=== PATIENT | male | born 1990 | race Caucasian/White ===

== ENCOUNTER 2017-12-05 20:20 | Emergency (ER) | payer OTHER ==
[~2017-12-05] VITALS: Ht 190.5 cm; Wt 172.4 kg
[~2017-12-05 20:20] MED LIST: CEPH500C PO; CIPR500T94 PO
[2017-12-05] MEDS ORDERED: PANTOPRAZOLE IV PUSH 40 MG VIAL. IVP ONE (21:45)
[2017-12-05] MEDS ORDERED: ONDANSETRON PF 4 MG/2 ML VIAL. IV ONE (21:45)
[2017-12-05] MEDS ORDERED: IV NORMAL SALINE 1000ML BAG 1,000 ML IV ONE (21:45)
[2017-12-05 22:05] LABS: BASO # 0.1 x10^3/uL (0.0-0.2); BASO % 1 % (0-3); EOS # 0.2 x10^3/uL (0.0-0.7); EOS % 2 % (0-3); HEMATOCRIT 46.9 % (39.0-53.0); HEMOGLOBIN 16.6 g/dL (13.0-17.5); LYMPH # 2.4 x10^3/uL (1.0-4.8); LYMPH % 28 % (24-48); MEAN CORPUSCULAR HEMOGLOBIN 31 pg (25-35); MEAN CORPUSCULAR HGB CONC 36 g/dL (31-37); MEAN CORPUSCULAR VOLUME 88 fL (79-100); MONO # 0.6 x10^3/uL (0.0-1.1); MONO % 8 % (0-9); NEUT # 5.2 x10^3uL (1.8-7.7); NEUT % 62 % (31-73); PLATELET COUNT 332 x10^3/uL (140-400); RED BLOOD COUNT 5.31 x10^6/uL (4.30-5.70); WHITE BLOOD COUNT 8.5 x10^3/uL (4.0-11.0)
[2017-12-05 22:08] LABS: FECAL OB PT POSITIVE (NEG)
[2017-12-05 22:16] LABS: CALCIUM 10.1 mg/dL (8.5-10.1); CREATININE 1.2 mg/dL (0.7-1.3); GFR 73.2; POTASSIUM 3.8 mmol/L (3.5-5.1)
[2017-12-05 22:22] LABS: ALBUMIN 4.6 g/dL (3.4-5.0); MAGNESIUM 2.2 mg/dL (1.8-2.4)
--- NOTE | 2017-12-05 22:23 | PHYS DOC ---
Past Medical History Past Medical History: Hypertension Additional Past Medical Histor: OBESITY Past Surgical History: No Surgical History Alcohol Use: Occasionally Drug Use: Marijuana Social History Narrative: PT STATES THE LAST TIME HE SMOKED MARIJUANA WAS 3 WEEKS AGO Adult General Chief Complaint Chief Complaint: RECTAL BLEED HPI HPI Patient is a 27 year old male with history of hypertension who presents today complaining of bright red bloody stools since Sunday. Patient states he has toilet full of blood whenever he has to use the bathroom. He states this began as loose stools and no has turn into blood when he uses the bathroom. Patient denies any abdominal pain. He is also complaining of rectal pain when he uses the bathroom. Denies any nausea, vomiting. He is complaining of dizziness intermittently since Sunday. Nothing exacerbates or making his dizziness better. Denies any chest pain. Denies any shortness of breath Review of Systems Review of Systems Constitutional: Denies fever or chills [] Eyes: Denies change in visual acuity, redness, or eye pain [] HENT: Denies nasal congestion or sore throat [] Respiratory: Denies cough or shortness of breath [] Cardiovascular: No additional information not addressed in HPI [] GI: Reports bloody stools. Denies abdominal pain, nausea, vomiting : Denies dysuria or hematuria [] Musculoskeletal: Denies back pain or joint pain [] Integument: Denies rash or skin lesions [] Neurologic: Reports dizziness. Denies headache, focal weakness or sensory changes [] All other systems were reviewed and found to be within normal limits, except as documented in this note. Current Medications Current Medications Current Medications Medications (Trade) Dose Ordered Sig/Jarred Start Time Stop Time Status Last Admin Dose Admin Info (CONTRAST GIVEN -- Rx MONITORING) 1 each PRN DAILY PRN 12/05/17 22:30 12/07/17 22:29 Iohexol (Omnipaque 300 Mg/ml) 75 ml 1X ONCE 12/05/17 22:30 12/05/17 22:31 DC 12/05/17 22:29 75 ML Ondansetron HCl (Zofran) 4 mg 1X ONCE 12/05/17 21:45 12/05/17 21:54 DC 12/05/17 22:39 4 MG Pantoprazole Sodium (PROTONIX VIAL for IV PUSH) 40 mg 1X ONCE 12/05/17 21:45 12/05/17 21:54 DC 12/05/17 22:39 40 MG Sodium Chloride 1,000 ml @ 1,000 mls/hr 1X ONCE 12/05/17 21:45 12/05/17 22:44 DC 12/05/17 22:40 1,000 MLS/HR Allergies Allergies Allergies Coded Allergies Type Severity Reaction Last Updated Verified No Known Drug Allergies 11/05/15 No Physical Exam Physical Exam Constitutional: Well developed, well nourished, no acute distress, non-toxic appearance. [] HENT: Normocephalic, atraumatic, bilateral external ears normal, oropharynx moist, no oral exudates, nose normal. [] Eyes: PERRLA, EOMI, conjunctiva normal, no discharge. [] Neck: Normal range of motion, no tenderness, supple, no stridor. [] Cardiovascular:Heart rate regular rhythm, no murmur [] Lungs & Thorax: Bilateral breath sounds clear to auscultation [] Abdomen: Bowel sounds normal, soft, no tenderness, no masses, no pulsatile masses. [] Skin: Warm, dry, no erythema, no rash. [] Back: No tenderness, no CVA tenderness. [] Extremities: No tenderness, no cyanosis, no clubbing, ROM intact, no edema. [] Neurologic: Alert and oriented X 3, normal motor function, normal sensory function, no focal deficits noted. [] Psychologic: Affect normal, judgement normal, mood normal. [] Current Patient Data Vital Signs Vital Signs Date Time Temp Pulse Resp B/P (MAP) Pulse Ox O2 Delivery O2 Flow Rate FiO2 12/05/17 21:35 98.3 105 20 143/87 (105) 98 Room Air 98.3 Lab Values Laboratory Tests Test 12/05/17 21:20 12/05/17 21:50 Stool Occult Blood Positive (NEG) White Blood Count 8.5 x10^3/uL (4.0-11.0) Red Blood Count 5.31 x10^6/uL (4.30-5.70) Hemoglobin 16.6 g/dL (13.0-17.5) Hematocrit 46.9 % (39.0-53.0) Mean Corpuscular Volume 88 fL (79-100) Mean Corpuscular Hemoglobin 31 pg (25-35) Mean Corpuscular Hemoglobin Concent 36 g/dL (31-37) Red Cell Distribution Width 13.0 % (11.5-14.5) Platelet Count 332 x10^3/uL (140-400) Neutrophils (%) (Auto) 62 % (31-73) Lymphocytes (%) (Auto) 28 % (24-48) Monocytes (%) (Auto) 8 % (0-9) Eosinophils (%) (Auto) 2 % (0-3) Basophils (%) (Auto) 1 % (0-3) Neutrophils # (Auto) 5.2 x10^3uL (1.8-7.7) Lymphocytes # (Auto) 2.4 x10^3/uL (1.0-4.8) Monocytes # (Auto) 0.6 x10^3/uL (0.0-1.1) Eosinophils # (Auto) 0.2 x10^3/uL (0.0-0.7) Basophils # (Auto) 0.1 x10^3/uL (0.0-0.2) Sodium Level 135 mmol/L (136-145) L Potassium Level 3.8 mmol/L (3.5-5.1) Chloride Level 99 mmol/L (98-107) Carbon Dioxide Level 28 mmol/L (21-32) Anion Gap 8 (6-14) Blood Urea Nitrogen 20 mg/dL (8-26) Creatinine 1.2 mg/dL (0.7-1.3) Estimated GFR (Cockcroft-Gault) 73.2 BUN/Creatinine Ratio 17 (6-20) Glucose Level 110 mg/dL (70-99) H Calcium Level 10.1 mg/dL (8.5-10.1) Magnesium Level 2.2 mg/dL (1.8-2.4) Total Bilirubin 1.0 mg/dL (0.2-1.0) Aspartate Amino Transferase (AST) 73 U/L (15-37) H Alanine Aminotransferase (ALT) 147 U/L (16-63) H Alkaline Phosphatase 111 U/L (46-116) Creatine Kinase 156 U/L (39-308) Creatine Kinase MB (Mass) 0.9 ng/mL (0.0-3.6) Creatine Kinase MB Relative Index 0.6 % (0-4) Troponin I Quantitative < 0.017 ng/mL (0.000-0.055) HX-Uzt-S-Type Natriuretic Peptide 9 pg/mL (0-124) Total Protein 9.0 g/dL (6.4-8.2) H Albumin 4.6 g/dL (3.4-5.0) Albumin/Globulin Ratio 1.0 (1.0-1.7) Lipase 136 U/L (73-393) Thyroid Stimulating Hormone (TSH) 2.840 uIU/mL (0.358-3.74) Ethyl Alcohol Level < 10 mg/dL (0-10) Laboratory Tests 12/05/17 21:50 Laboratory Tests 12/05/17 21:50 EKG EKG [] Radiology/Procedures Radiology/Procedures []PROCEDURE: CT ABD PELV W/ IV CONTRST ONLY CT ABD PELV W/ IV CONTRST ONLY dated 12/05/2017 10:24 PM Indication: Rectal bleeding.rectal bleed x 3 days, no priors, omni30 75ml. Comparison: No comparison is available. Technique: Contiguous axial imaging of the abdomen and pelvis performed after the administration of 75 cc Isovue-370. One or more of the following individualized dose reduction techniques were utilized for this examination: 1. Automated exposure control 2. Adjustment of the mA and/or kV according to patient size 3. Use of iterative reconstruction technique Findings: Limited images of the lung bases are clear. Heart size within normal limits. No pleural or pericardial effusion. Liver, spleen, pancreas, adrenal glands, gallbladder and kidneys are unremarkable. No hydronephrosis. Unopacified GI tract normal in caliber and contour. No focal bowel wall thickening. No inflammatory stranding in the mesentery. No ascites or lymphadenopathy. The abdominal aorta is normal in caliber. Appendix normal in caliber. Images of pelvis show nondistended urinary bladder. No inflammatory changes in the perirectal fat. Prostate gland is normal in size. No free fluid or lymphadenopathy. Bone windows show no acute findings. Mild lower lumbar spondylosis. IMPRESSION: 1. No acute abnormality of abdomen or pelvis. Electronically signed by: Yoan Santacruz MD (12/05/2017 10:43 PM) [facility] DICTATED and SIGNED BY: YOAN SANTACRUZ MD DATE: 12/05/17 470 Course & Med Decision Making Course & Med Decision Making Pertinent Labs and Imaging studies reviewed. (See chart for details) This is a 27-year-old male patient presenting to the ED today with bloody stools since Sunday. Also complaining of rectal pain. CBC with hemoglobin of 16.6, hematocrit of 46.9. CMP with AST of 73, ALT 147. Positive Hemoccult. Patient has no abdominal pain. Acute abdominal series is negative for any acute findings. CT of the abdomen and pelvic is negative for any acute findings. Patient is stable. He was discharged home. He was instructed to take Protonix every day. He has a PCP. I recommended he follows up in the course of this week or next week. Also instructed to push fluids maintain good hand hygiene. Discharged with Zofran. Also provided GI for follow-up. Also instructed to return to the ED at any point symptoms worsen. Dragon Disclaimer Dragon Disclaimer This electronic medical record was generated, in whole or in part, using a voice recognition dictation system. Departure Departure Impression: Primary Impression: Rectal bleed Additional Impressions: Transaminitis Dizziness Disposition: HOME, SELF-CARE Condition: STABLE Referrals: NO PCP (PCP) MAX SHINE MD Follow up with your primary care doctor or the provided doctor in one week Patient Instructions: Dizziness, Rectal Bleeding Additional Instructions: You were evaluated in the emergency room for rectal bleeding and dizziness. Your workup was negative for any acute findings. We recommend you take Protonix every day and Zofran as needed for nausea vomiting. We recommend you follow-up with the provided rat breeder or your own primary care doctor in the course of this week or next week. Come back to the emergency room at any point symptoms worsen. Scripts Pantoprazole Sodium (PROTONIX) 20 Mg Tablet.dr 1 TAB PO DAILY, #30 TAB Prov: REYNOLD CARRILLO APRN 12/05/17 Ondansetron (ZOFRAN ODT) 4 Mg Tab.rapdis 1 TAB SL Q8HRS, #15 TAB Prov: REYNOLD CARRILLO APRN 12/05/17 Problem Qualifiers REYNOLD CARRILLO APRN Dec 05, 2017 22:23
[2017-12-05] MEDS ORDERED: IOHEXOL 300 MG/ML 100ML VIAL. IV ONE (22:30)
[2017-12-05] MEDS ORDERED: CONTRAST GIVEN. MC PRN (22:30)
--- NOTE | 2017-12-05 22:47 | RAD ---
CT ABD PELV W/ IV CONTRST ONLY dated 12/05/2017 10:24 PM Indication: Rectal bleeding.rectal bleed x 3 days, no priors, omni30 75ml. Comparison: No comparison is available. Technique: Contiguous axial imaging of the abdomen and pelvis performed after the administration of 75 cc Isovue-370. One or more of the following individualized dose reduction techniques were utilized for this examination: 1. Automated exposure control 2. Adjustment of the mA and/or kV according to patient size 3. Use of iterative reconstruction technique Findings: Limited images of the lung bases are clear. Heart size within normal limits. No pleural or pericardial effusion. Liver, spleen, pancreas, adrenal glands, gallbladder and kidneys are unremarkable. No hydronephrosis. Unopacified GI tract normal in caliber and contour. No focal bowel wall thickening. No inflammatory stranding in the mesentery. No ascites or lymphadenopathy. The abdominal aorta is normal in caliber. Appendix normal in caliber. Images of pelvis show nondistended urinary bladder. No inflammatory changes in the perirectal fat. Prostate gland is normal in size. No free fluid or lymphadenopathy. Bone windows show no acute findings. Mild lower lumbar spondylosis. IMPRESSION: 1. No acute abnormality of abdomen or pelvis. Electronically signed by: Yoan Santacruz MD (12/05/2017 10:43 PM) [facility]
--- NOTE | 2017-12-05 22:48 | RAD ---
Abdominal series dated 12/05/2017. No comparison available. Clinical indication: Rectal bleeding for 3 days. FINDINGS: Single upright view of the chest shows normal heart and mediastinal contours. Lungs are clear without focal consolidation. Vascular interstitium within normal limits. No pleural effusion or pneumothorax. Flat and upright views the abdomen show nondilated gas-filled loops of bowel throughout. No abnormal calcification. No air-fluid level or pneumoperitoneum on the upright view. IMPRESSION: No acute radiographic abnormality. Nonobstructive bowel gas pattern. Electronically signed by: Yoan Santacruz MD (12/05/2017 10:44 PM) [facility]
[2017-12-05] MEDS ORDERED: ONDA4TAB10 SL (22:57)
[2017-12-05] MEDS ORDERED: PANT20TA2 PO (22:57)
[2017-12-05 23:07] VITALS: BP 135/70
--- NOTE | 2017-12-06 07:30 | EKG ---
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
== END 2017-12-05 23:15 | disposition home or self-care (01) ==
LOC: ER 20:20
DX: K62.5 Hemorrhage of anus and rectum (principal); R74.0 Nonspecific elevation of levels of transaminase and lactic acid dehydrogenase [LDH]; R42 Dizziness and giddiness; I10 Essential (primary) hypertension; E66.9 Obesity, unspecified; Z68.42 Body mass index [BMI] 45.0-49.9, adult
CPT/HCPCS: 36415; 74022; 74177; 80053; 82274; 82553; 83690; 83735; 83880; 84443; 84484; 85025; 93005; 96361; 96374; 96375; 99285; C9113; G0480; J2405; J7030; Q9967

== ENCOUNTER 2019-05-21 16:07 | Emergency (ER) | payer MEDICAID, OTHER ==
[~2019-05-21] VITALS: Ht 190.5 cm; Wt 163.0 kg
[~2019-05-21 16:07] MED LIST changes: +ONDA4TAB10 SL; +PANT20TA2 PO
[2019-05-21 16:20] VITALS: BP 188/88
[2019-05-21] MEDS ORDERED: DIPHTH,PERTUSS(ACELL),TET TOX 0.5 ML DISP.SYRIN. VAX IM ONE (16:45)
--- NOTE | 2019-05-21 17:45 | RAD ---
Left Lower Extremity Venous Doppler Ultrasound History: Cellulitis Comparison: None Procedure: Color flow, duplex, spectral analysis and 2D images are obtained with and without compression in the area of the common femoral vein, superficial femoral vein - femoral vein junction, main femoral vein (superficial femoral vein) and popliteal vein. Veins of the proximal calf are also imaged. Findings: There is normal duplex flow, color flow and compressibility of all visualized vein segments. No evidence of deep venous thrombus is present. Interrogation of the area around a spider bite in the anterior distal calf shows soft tissue edema. Impression: No evidence of DVT. Electronically signed by: Guanaco Doherty III, MD (05/21/2019 5:42 PM) [facility]
[2019-05-21] MEDS ORDERED: SULF1TAB24 PO (17:52)
[2019-05-21] MEDS ORDERED: HYDR-3164 PO (17:52)
[2019-05-21] MEDS ORDERED: CEPH500T PO (17:52)
--- NOTE | 2019-05-21 17:52 | PHYS DOC ---
Past Medical History Past Medical History: Hypertension Additional Past Medical Histor: OBESITY (REYNOLD CARRILLO APRN) Past Surgical History: No Surgical History (REYNOLD CARRILLO APRN) Alcohol Use: Occasionally Drug Use: Marijuana (REYNOLD CARRILLO APRN) Adult General Chief Complaint Chief Complaint: INSECT BITE HPI HPI Patient is a 29 year old male with hx of HTN who presents with redness and swelling to the left lower extremity that began couple days ago. Patient reports a month ago he noted a skin tear on the left lópez from wearing boots that were not fitting well. He reports couple weeks later he noted some redness to the LLE which has gotten worse in the last couple days. Denies fever. (REYNOLD CARRILLO APRN) Review of Systems Review of Systems Constitutional: Denies fever or chills [] Eyes: Denies change in visual acuity, redness, or eye pain [] HENT: Denies nasal congestion or sore throat [] Respiratory: Denies cough or shortness of breath [] Cardiovascular: No additional information not addressed in HPI [] GI: Denies abdominal pain, nausea, vomiting, bloody stools or diarrhea [] : Denies dysuria or hematuria [] Musculoskeletal: Denies back pain or joint pain [] Integument: Reports left lower extremity redness and swelling Neurologic: Denies headache, focal weakness or sensory changes [] All other systems were reviewed and found to be within normal limits, except as documented in this note. (REYNOLD CARRILLO APRN) Current Medications Current Medications Current Medications Medications (Trade) Dose Ordered Sig/Jarred Start Time Stop Time Status Last Admin Dose Admin Diphtheria/ Tetanus/Acell Pertussis (Boostrix) 0.5 ml ONCE ONCE 05/21/19 16:45 05/21/19 16:46 DC 05/21/19 16:50 0.5 ML (PAT FARR DO) Allergies Allergies Allergies Coded Allergies Type Severity Reaction Last Updated Verified No Known Drug Allergies 11/05/15 No (PAT FARR DO) Physical Exam Physical Exam Constitutional: Well developed, well nourished, no acute distress, non-toxic appearance. [] HENT: Normocephalic, atraumatic, bilateral external ears normal, oropharynx m oist, no oral exudates, nose normal. [] Eyes: PERRLA, EOMI, conjunctiva normal, no discharge. [] Neck: Normal range of motion, no tenderness, supple, no stridor. [] Cardiovascular:Heart rate regular rhythm, no murmur [] Lungs & Thorax: Bilateral breath sounds clear to auscultation [] Abdomen: Bowel sounds normal, soft, no tenderness, no masses, no pulsatile masses. [] Skin: Warm, dry, left lópez with a scabbed up region approximately 2 x 2 centimeters, with mild cellulitis stretching from this region to the back of the leg/calf. Neurovascular exam is intact. Range of motion is intact. Patient is morbidly obese. Noted for multiple varicose veins. Back: No tenderness, no CVA tenderness. [] Extremities: No tenderness, no cyanosis, no clubbing, ROM intact, no edema. [] Neurologic: Alert and oriented X 3, normal motor function, normal sensory function, no focal deficits noted. [] Psychologic: Affect normal, judgement normal, mood normal. [] (REYNOLD CARRILLO APRN) Current Patient Data Vital Signs Vital Signs Date Time Temp Pulse Resp B/P (MAP) Pulse Ox O2 Delivery O2 Flow Rate FiO2 05/21/19 16:20 98.2 112 16 188/88 (121) 98 Room Air 98.2 (PAT FARR DO) EKG EKG [] (REYNOLD CARRILLO APRN) Radiology/Procedures Radiology/Procedures [] (REYNOLD CARRILLO APRN) Course & Med Decision Making Course & Med Decision Making Pertinent Labs and Imaging studies reviewed. (See chart for details) This is a 29-year-old male patient presenting to the ED today with cellulitis of the left lower extremity, infection began from skin tear on the left lower extremity. Venous Doppler of the left lower extremity is negative. Tetanus was updated. Given Rx for cephalexin, Bactrim and [place] for pain. Follow-up with PCP in one week. BP was high 188/88 patient reports history of hypertension but is not taking anything for repeat. I recommended he follows up with a PCP for blood pressure management. (REYNOLD CARRILLO APRN) Dragon Disclaimer Dragon Disclaimer This electronic medical record was generated, in whole or in part, using a voice recognition dictation system. (REYNOLD CARRILLO APRN) Departure Departure Impression: Primary Impression: Left leg cellulitis Disposition: HOME, SELF-CARE Condition: STABLE Referrals: VICKI CARNES MD (PCP) Follow up in 1-2 weeks Patient Instructions: Cellulitis, [id number] Additional Instructions: You have cellulitis of the left lower extremity. Please take the prescribed ant ibiotics until completed. Keep the area clean and dry. Come back to the ED at any point symptoms worsen. Scripts Hydrocodone/Apap 5-325 (NORCO 5-325 TABLET) 1 Each Tablet 1 TAB PO Q6HRS, #20 TAB Prov: REYNOLD CARRILLO APRN 05/21/19 Cephalexin (CEPHALEXIN) 500 Mg Tablet 1 TAB PO TID, #30 TAB Prov: REYNOLD CARRILLO APRN 05/21/19 Sulfamethoxazole/Trimethoprim (BACTRIM DS TABLET) 1 Each Tablet 1 TAB PO BID for 10 Days, #20 TAB 0 Refills Prov: REYNOLD CARRILLO APRN 05/21/19 Attending Signature Attending Signature I have reviewed the PA/LUBE ATTENDANT's note and plan of care. I was available for consultation as needed during the patient's visit in the emergency department. I agree with the clinical impression, plan, and disposition. (PAT FARR DO) REYNOLD CARRILLO APRN May 21, 2019 17:52 PAT FARR DO May 25, 2019 02:05
== END 2019-05-21 18:00 | disposition home or self-care (01) ==
LOC: ER 16:07
DX: L03.116 Cellulitis of left lower limb (principal); I10 Essential (primary) hypertension; E66.9 Obesity, unspecified; Z68.41 Body mass index [BMI] 40.0-44.9, adult
CPT/HCPCS: 90471; 90715; 93971; 99284-25